=== PATIENT | male | born 1955 ===

== ENCOUNTER 2025-07-28 10:46 | Emergency (ER) | payer MEDICARE, OTHER ==
[~2025-07-28] VITALS: Ht 170.2 cm; Wt 78.9 kg
== END 2025-07-28 12:56 | disposition home or self-care (01) ==
LOC: ER 10:46
DX: S01.81XA Laceration without foreign body of other part of head, initial encounter (principal); W18.30XA Fall on same level, unspecified, initial encounter
CPT/HCPCS: 12014; 70450; 90471; 90702; 90714; 90715; 99283-25